=== PATIENT | female | born 1950 | race Caucasian/White ===

== ENCOUNTER 2022-09-14 12:01 | Outpatient (CLI) | payer OTHER, SELFPAY ==
[2022-09-14 17:47] LABS: SARS PCR* POSITIVE SARS-CoV-2 (Negative)
== END 2022-09-14 12:02 | disposition home or self-care (01) ==
LOC: KYNREF 12:02
PROVIDERS: PCP Nurse Practitioner Family; Visit Provider Nurse Practitioner Family
DX: U07.1 COVID-19 (principal); J11.1 Influenza due to unidentified influenza virus with other respiratory manifestations
CPT/HCPCS: 87635